=== PATIENT | male | born 1965 | race Asian ===

== ENCOUNTER → 2016-12-10 | Outpatient (CLI) | payer MEDICAID ==
--- NOTE | 2016-12-10 17:29 | DX ---
IndexFinger Minimum 2 Views Left History: Laceration months ago. Persistent pain. Findings: There is a focal bony excrescence extending off the ulnar margin of the distal phalanx of the index finger which may be secondary to prior trauma. No acute fracture identified. Joint spaces a re maintained. Impression: Bony excrescence off the distal phalanx, left index finger, otherwise negative.
== END ==
LOC: CIMAGING 09:51
PROVIDERS: ATTEND Internal Medicine
DX: S61.219D Laceration without foreign body of unspecified finger without damage to nail, subsequent encounter (principal); M25.742 Osteophyte, left hand; R19.7 Diarrhea, unspecified; R73.09 Other abnormal glucose; S61.219A Laceration without foreign body of unspecified finger without damage to nail, initial encounter; Z12.11 Encounter for screening for malignant neoplasm of colon; R73.03 Prediabetes
CPT/HCPCS: 73140-PO; 80053-PO; 80061-PO; 82784-90; 83516-90; 84443-PO; 85025-PO; G0103-PO